=== PATIENT | male | born 1995 | race Caucasian/White ===

== ENCOUNTER 2017-10-18 13:25 | Emergency (ER) | payer BC ==
[~2017-10-18] VITALS: Ht 182.9 cm; Wt 91.6 kg
[2017-10-18 13:37] VITALS: TEMP 36.9; Ht 182.9 cm; Wt 91.6 kg
--- NOTE | 2017-10-18 14:02 | EMERGENCY ROOM VISIT NOTE ---
History First contact with patient: 13:51 Chief Complaint: KNEEPAIN Stated Complaint: KNEE PLATELL BROKEN? History of Present Illness The patient is a 22 year old male who presents to the Emergency Room with complaints of continued right knee pain. The patient had a fall 4 nights ago. He slipped on black ice landing on his right knee. He saw [facility] services the day following. X-rays were performed. He was told that he had a patellar fracture and was given a brace. He is uncertain if he should be bearing weight on the leg. He is also uncertain of whom he should follow-up for further care. He denies any other injuries. He was given ibuprofen prescription strength, but has not been taking it. Review of Systems 6 system review negative. Please see pertinent positives in the history of present illness section. Past Medical/Surgical History Otherwise healthy Social History Smoking Status: Never Smoker Alcohol Use: occasionally Drug Use: none Marital Status: single Housing Status: lives with roommate Occupation Status: [employer] student Current/Historical Medications No Active Prescriptions or Reported Meds Physical Exam Vital Signs Date Time Temp Pulse Resp B/P (MAP) Pulse Ox O2 Delivery O2 Flow Rate FiO2 10/18/17 13:37 36.9 50 16 121/64 98 Room Air Physical Exam VITALS: Vitals are noted on the nurse's note and reviewed by myself. Vital signs stable. GENERAL: 22-year-old male, in no acute distress, nondiaphoretic, well-developed well-nourished. SKIN: The skin was intact HEAD: Normocephalic atraumatic. MUSCULOSKELETAL: RLE: Swelling and mild ecchymosis noted over the right patella. Tenderness in this area. The patient is able to flex the knee approximately 90. No tenderness noted over the proximal fibula or tibia. No tenderness over the calf. No tenderness over the medial or lateral malleolus. No tenderness over the distal quadriceps tendon. Patellar tendon intact. Negative anterior and posterior drawer test. No joint line and tenderness noted. NEURO: Patient was alert and oriented to person place and time. Normal sensation to touch. No focal neurological deficits. Medical Decision & Procedures ED Course The patient was seen and examined Imaging was reviewed The patient was reassessed and resting comfortably. We discussed his x-rays. He voiced understanding. The patient was given a knee immobilizer. Discharge instructions were thoroughly reviewed, and he was discharged in good condition Medical Decision Differential diagnosis: Patellar fracture, patellar tendon rupture, knee effusion, ligamentous injury This patient is a 22-year-old male presents to the emergency department with continued knee pain after falling on the knee a few days ago. His imaging from [facility] was reviewed. He does have a patellar fracture. He does not have any ligamentous injury on exam. The patient was given a knee immobilizer. He has crutches at home. He will follow-up with [facility] orthopedics this week. He was comfortable taking ibuprofen for pain. He will return for any new or concerning symptoms This chart was completed in part utilizing [employer] Speech Voice Recognition software. Attempts were made to minimize the grammatical errors, random word insertions, pronoun errors and incomplete sentences. Any formal questions or concerns about the content, text or information contained within the body of this dictation should be directly addressed to the provider for clarification. Medication Reconcilliation Current Medication List: was personally reviewed by me Blood Pressure Screening Patient's blood pressure: Normal blood pressure Impression Primary Impression: Patellar fracture Departure Information Dispostion Home / Self-Care Condition GOOD Prescriptions No Active Prescriptions or Reported Meds Referrals No Doctor, Assigned (PCP) Ken Nunez M.D. Patient Instructions My [facility] Additional Instructions You have been evaluated in the emergency department for a patellar fracture. Please keep the knee immobilizer in place particularly when moving about. Ideally, use crutches without weightbearing on the leg. Please apply ice for 20 minute intervals especially over the next 48 hours. Elevate the knee above your heart. Ibuprofen 600 mg every 6 hours as needed for pain Please call the orthopedic doctors office in the morning for a follow-up appointment Do not hesitate to return to the emergency department with a new, worsening or concerning symptoms. School Instructions Return To School: 1 day
[2017-10-18 14:41] VITALS: BP 146/64; PULSE 55; O2SAT 94
== END 2017-10-18 14:42 | disposition home or self-care (01) ==
LOC: C.EDB 13:28 → C.EDD 14:42
DX: S82.001A Unspecified fracture of right patella, initial encounter for closed fracture (principal); W00.0XXA Fall on same level due to ice and snow, initial encounter

== ENCOUNTER → 2017-11-09 | Outpatient (CLI) | payer BC | END | disposition home or self-care (01) | LOC: C.RDSM 13:30 | PROVIDERS: ATTEND Physical Medicine & Rehabilitation Sports Medicine | DX: S82.024A Nondisplaced longitudinal fracture of right patella, initial encounter for closed fracture (principal); X58.XXXA Exposure to other specified factors, initial encounter ==

== ENCOUNTER 2021-06-01 03:26 | Observation (INO) ==
[~2021-06-01 03:26] MED LIST: SODIUM CHLORIDE 0.9% 1000ML 1,000 ML IV ONE
--- NOTE | 2021-06-01 03:30 | Emergency Department Note ---
Impression & Plan Laceration of left flank, Alcohol intoxication ED Provider Note Name: [id number] Age: 25 Sex: M Arrives Via: Ambulance Informant: Patient, EMS ED Provider: Abhay Lord MD Chief Complaint: abdominal trauma Impression: Left Flank Laceration Alcohol Intoxication Medical Decision Making: Very pleasant intoxicated male without PMH with large gash to left flank after going through a glass door. Occlusive dressing already applied by EMS. Tetanus UTD and patient given Ancef 2gm IV. CT c/a/p obtained reveals no intrathoracic nor intraabdominal penetration remarkably, though multiple pieces of glass within the wound. Soft non-tender abdomen consistent without peritonitis. I explored the wound and after noting significant caudal tunnelling of wound and debris within it gen surg consulted. Patient taken to OR for wash-out and closure of wound. Patient stable throughout and comfortably declining pain medications. Triage/Nursing Notes reviewed by Me Differentials:Contaminated wound, intra-abdominal injury, pneumothorax, intrathoracic, tetanus status, renal injury/splenic injury, hemothorax, diaphragm rupture as well as other pathologies. Vital Signs: reviewed and remarkable for no significant abnormalities Interventions: saline lock, ancef iv Labs:Reviewed and remarkable for no significant abnormalities Imaging:[facility] Radiologist interpretation reviewed by me: large left flank wound with multiple FB, no penetration in to abdomen nor chest Consults:Dr Allred Gen Surg - took patient to OR Plan: Disposition: TO Operating room Condition: Good History of Present Illness:25 yr old male arrives for evaluation of left flank trauma. Patient admits etoh use this evening and accidentally walked through a glass patio door. Laceration to left flank. Moderate pain with movement. No other injuries. Denies abdominal pain, back pain, nor shortness of breath. EMS placed occlusive dressing and transferred to ED. No meds en route. No drug use. Denies bleeding disorder. No allergies. Tetanus up to date. ROS: See above HPI for pertinent positives & negatives. A total of 10 systems reviewed and were otherwise negative. 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 EYES: No scleral icterus, unremarkable pupils. ENT: Mucous membranes moist, no nasal congestion. NECK: No masses appreciated, nomeningismus, trachea is midline. RESPIRATORY: No dyspnea. Clear to auscultation and equal bilaterally. No wheeze, no rhonchi. CARDIOVASCULAR: Regular rate and rhythm.No murmurs, rubs, gallops appreciated. GASTROINTESTINAL: Abdomen soft, non-tender, no peritonitis.Bowel sounds positive.No masses appreciated. Large gash to left flank which is dressed with occlusive dressing, several surrounding satellite lacerations. BACK: No midline tenderness, no CVA tenderness EXTREMITIES: Normal motion all extremities, no cyanosis, no edema. NEUROLOGIC: Alert and oriented, no acute motor or sensory deficits, no focal weakness, cranial nerves grossly intact. SKIN: No rash, no jaundice, no diaphoresis. PSYCH: Appropriate GCS: 15 ED Course: Times/Reassessments: multiple re-evaluations, patient stable, breathing comfortably without significant bleeding from wound Abhay Lord MD Past Med/Surg History Surgical History (Updated 06/03/21 @ 11:25 by Dayana Vernon RN) History of surgery (06/01/21) Wound Closure and Washout Dr. Allred 06/01/2021 Social History (System 06/02/21 @ 12:50 by Karolyn Vela) Smoking Status: Current some day smoker Hx Alcohol Use: Yes Alcohol type: beer, wine and hard liquor Hx Substance Use: No Preferred Language: Ukrainian Communication Ability: Effective [employer] Required: No Beliefs That Will Affect Care: None Current Living Situation: Other Feels Safe at Home: Yes Gender Identity: Male Assistive Devices: None Allergies Allergies Allergy/AdvReac Type Severity Reaction Status Date / Time No Known Allergies Allergy Unverified 06/02/21 12:50 Results & Data (ED) Laboratory Data Result diagrams: 06/01/21 03:44 06/01/21 03:43 Lab Results 06/01/21 06/01/21 06/01/21 Range/Units 03:43 03:43 03:44 WBC 5.20 (4.8-10.8) K/uL RBC 4.67 L (4.7-6.1) M/uL Hgb 14.2 (14.0-18.0) g/dL Hct 40.6 L (42-52) % MCV 86.9 (80-100) fL MCH 30.4 (25-34) pg MCHC 35.0 (32-36) g/dL RDW Std Deviation 40.6 (36.4-46.3) fL RDW Coeff of Jackson 12.7 (11.5-14.5) % Plt Count 201 (130-400) K/uL MPV 9.7 (7.4-10.4) fL Immature Gran % (Auto) 0.2 % Neut % (Auto) 63.3 % Lymph % (Auto) 29.2 % Davis % (Auto) 6.7 % Eos % (Auto) 0.2 % Baso % (Auto) 0.4 % Neut # (Auto) 3.29 (1.4-6.5) K/uL Lymph # (Auto) 1.52 (1.2-3.4) K/uL Davis # (Auto) 0.35 (0.11-0.59) K/uL Eos # (Auto) 0.01 (0-0.5) K/uL Baso # (Auto) 0.02 (0-0.2) K/uL Immature Gran # (Auto) 0.01 (0.00-0.02) K/uL Sodium 140 (136-145) mmol/L Potassium 4.2 (3.5-5.1) mmol/L Chloride 107 (98-107) mmol/L Carbon Dioxide 29 (21-32) mmol/L Anion Gap 4.0 (3-11) BUN 10 (7-18) mg/dl Creatinine 1.20 (0.6-1.4) mg/dl Est Cr Clr Drug Dosing 114.7 ml/min Est GFR ( Amer) 97.5 ml/min Est GFR (Non-Af Amer) 84.1 ml/min BUN/Creatinine Ratio 8.5 L (10-20) Glucose 106 H (70-99) mg/dl Calcium 8.7 (8.5-10.1) mg/dl Ethyl Alcohol mg/dL 231.0 H (0-3) mg/dl COVID-19 Eval Order SARS-CoV-2 (PCR) (Negative) 06/01/21 06/01/21 Range/Units 05:34 05:34 WBC (4.8-10.8) K/uL RBC (4.7-6.1) M/uL Hgb (14.0-18.0) g/dL Hct (42-52) % MCV (80-100) fL MCH (25-34) pg MCHC (32-36) g/dL RDW Std Deviation (36.4-46.3) fL RDW Coeff of Jackson (11.5-14.5) % Plt Count (130-400) K/uL MPV (7.4-10.4) fL Immature Gran % (Auto) % Neut % (Auto) % Lymph % (Auto) % Davis % (Auto) % Eos % (Auto) % Baso % (Auto) % Neut # (Auto) (1.4-6.5) K/uL Lymph # (Auto) (1.2-3.4) K/uL Davis # (Auto) (0.11-0.59) K/uL Eos # (Auto) (0-0.5) K/uL Baso # (Auto) (0-0.2) K/uL Immature Gran # (Auto) (0.00-0.02) K/uL Sodium (136-145) mmol/L Potassium (3.5-5.1) mmol/L Chloride (98-107) mmol/L Carbon Dioxide (21-32) mmol/L Anion Gap (3-11) BUN (7-18) mg/dl Creatinine (0.6-1.4) mg/dl Est Cr Clr Drug Dosing ml/min Est GFR ( Amer) ml/min Est GFR (Non-Af Amer) ml/min BUN/Creatinine Ratio (10-20) Glucose (70-99) mg/dl Calcium (8.5-10.1) mg/dl Ethyl Alcohol mg/dL (0-3) mg/dl COVID-19 Eval Order Covid19 at [facility] SARS-CoV-2 (PCR) NEGATIVE (Negative) Administered Medications Discontinued Medications Hydrocodone Bitart/Acetaminophen (Hydrocodone/Acetamophen 5/325mg Tab) 1 tab PO Q4H PRN PRN Reason: MODERATE Pain (4,5,6) & Pre PT Stop: 06/15/21 13:01 Last Admin: 06/01/21 20:14 Dose: 1 tab Documented by: [id number] Fentanyl Citrate (Fentanyl Citrate 100 Mcg/2 Ml Vial) 25 mcg IV Q5M PRN PRN Reason: PACU Use Only-Pain Stop: 06/01/21 19:46 Last Admin: 06/01/21 14:36 Dose: 25 mcg Documented by: [id number] Admin: 06/01/21 13:57 Dose: 25 mcg Documented by: [id number] Admin: 06/01/21 13:49 Dose: 25 mcg Documented by: [id number] Admin: 06/01/21 13:42 Dose: 25 mcg Documented by: [id number] Admin: 06/01/21 13:35 Dose: 25 mcg Documented by: [id number] Sodium Chloride (Nss 1000ml) 1,000 mls @ 999 mls/hr IV .Q1H1M ONE Stop: 06/01/21 04:26 Last Infusion: 06/01/21 05:12 Dose: 0 mls/hr Documented by: [id number] Admin: 06/01/21 04:06 Dose: 999 mls/hr Documented by: [id number] Cefazolin Sodium (Ancef 2000mg) 2,000 mg in 15 mls @ 3.75 mls/min IV NOW STA Stop: 06/01/21 03:55 Last Admin: 06/01/21 04:06 Dose: 3.75 mls/min Documented by: [id number] Lactated Ringer's (Lr) 1,000 mls @ 80 mls/hr IV .[id number] Stop: 07/01/21 13:14 Last Admin: 06/02/21 04:54 Dose: 80 mls/hr Documented by: [id number] Infusion: 06/02/21 04:54 Dose: 80 mls/hr Documented by: [id number] Admin: 06/01/21 16:58 Dose: 80 mls/hr Documented by: [id number] Cefazolin Sodium (Ancef 2000mg) 2,000 mg in 15 mls @ 2.5 mls/min IV Q8H [facility]; Protocol Stop: 06/02/21 19:59 Last Admin: 06/02/21 04:54 Dose: 2.5 mls/min Documented by: [id number] Admin: 06/01/21 20:14 Dose: 2.5 mls/min Documented by: [id number] Ioversol (Optiray 320 100ml) 94 ml IV ONCE ONE Stop: 06/01/21 03:33 Last Admin: 06/01/21 03:32 Dose: 94 ml Documented by: [id number] Lidocaine/Epinephrine (Lidocaine/Epinephrine 1% 20 Ml Vial) 20 ml INFIL NOW ONE Stop: 06/01/21 05:05 Last Admin: 06/01/21 05:46 Dose: Not Given Documented by: [id number] Morphine Sulfate (Morphine Sulfate 2 Mg/Ml Carp) 2 mg IV Q3H PRN PRN Reason: Pain (1,2,3,4,5) & Pre PT Stop: 06/15/21 13:01 Last Admin: 06/01/21 16:22 Dose: 2 mg Documented by: [id number] Oxycodone/Acetaminophen (Percocet 5/325mg Homepack) 1 homepack PO UD ONE Stop: 06/02/21 06:40 Last Admin: 06/02/21 10:52 Dose: 1 homepack Documented by: [id number] Discharge Plan Visit Data Chief Complaint: Laceration/Cut (Suture/Dermabond) Stated Complaint: lac to abd ED Provider: Abhay Lord Discharge Problem: Laceration of left flank, Alcohol intoxication Patient Disposition: Admitted As Inpatient Discharge Instructions Interventions: ED Discharge Assessment Last Done: 06/01/21 11:24 Discharge Problem: Laceration of left flank Qualifiers: Encounter type: initial encounter Qualified Code(s): S31.119A - Laceration without foreign body of abdominal wall, unspecified quadrant without penetration into peritoneal cavity, initial encounter Alcohol intoxication Qualifiers: Complication of substance-induced condition: uncomplicated Qualified Code(s): F10.920 - Alcohol use, unspecified with intoxication, uncomplicated
[2021-06-01] MEDS ORDERED: OPTIRAY 320 100ml IV ONE (03:32)
[2021-06-01] MEDS ORDERED: ceFAZolin 2000MG 2,000 MG/15 ML SYR IV STA (03:52)
[2021-06-01 03:59] LABS: Basophils # (auto) 0.02 K/uL (0-0.2); Basophils % (auto) 0.4 %; Eosinophils # (auto) 0.01 K/uL (0-0.5); Eosinophils % (auto) 0.2 %; Hematocrit (blood only) 40.6 % (42-52); Hemoglobin 14.2 g/dL (14.0-18.0); Immature Granulocytes # (auto) 0.01 K/uL (0.00-0.02); Immature Granulocytes % (auto) 0.2 %; Lymphocytes # (auto) 1.52 K/uL (1.2-3.4); Lymphocytes % (auto) 29.2 %; Mean Corpuscular Hemoglobin 30.4 pg (25-34); Mean Corpuscular Volume 86.9 fL (80-100); Mean Platelet Volume 9.7 fL (7.4-10.4); Monocytes # (auto) 0.35 K/uL (0.11-0.59); Monocytes % (auto) 6.7 %; Neutrophils # (auto) 3.29 K/uL (1.4-6.5); Neutrophils % (auto) 63.3 %; Platelet Count 201 K/uL (130-400); RDW Coefficient of Variation 12.7 % (11.5-14.5); RDW Standard Deviation 40.6 fL (36.4-46.3); Red Blood Count 4.67 M/uL (4.7-6.1)
[2021-06-01 04:18] LABS: BUN Creatinine Ratio 8.5 (10-20); Calcium 8.7 mg/dl (8.5-10.1); Creatinine Clr Calc Pharmacy 114.7 ml/min; Est GFR (African American) 97.5 ml/min; Est GFR (Non-African American) 84.1 ml/min; Potassium 4.2 mmol/L (3.5-5.1)
[2021-06-01] MEDS ORDERED: LIDOCAINE/EPINEPHRINE 1% 20 ML VIAL INFIL ONE (05:04)
--- NOTE | 2021-06-01 05:49 | History & Physical Report ---
Date of Service June 01, 2021 Assessment & Plan (1) Laceration: Plan: Due to the size of complex ear laceration I discussed with Dr. Allred we feel that this would be best be closed in the operating room. The patient has received Ancef in the emergency department A Covid test has been ordered and is pending I discussed with the patient and consented him for a wound washout and closure in the operating room this morning History of Present Illness Chief Complaint: I have a laceration Primary Care Provider: NO PCP This is a 25-year-old male who is visiting [employer] for this evening's football game. Patient says that he was at a social gathering with some friends when at approximately 2:00 AM he accidentally walked through a glass door resulting in a laceration of his left flank. The present time the patient denies any pain. He is reported to the emergency room staff that his tetanus is up-to-date. Patient states that his most recent oral intake was approximately midnight last night. The patient denies taking any blood thinning medications. I discussed with the emergency room doctor and due to the extent of the laceration he feels that this may be best closed in the operating room. Patient has had a chest CT scan shows no fractures. There is no damage noted to the solid organs of the abdomen or pelvis. Densities were noted in the wound which potentially represented glass shards from his injury. Labs including CBC were white blood cell count and hemoglobin are noted to be normal. Patient's platelet count was noted to be normal. Chemistry profile showed sodium, potassium, BUN, and creatinine were all normal. Patient was noted to have an elevated ethyl alcohol level of 231. At the time my interview the patient was resting comfortably in bed and he was in no distress. Past Med/Surg History Social History Smoking Status: Never smoker Feels Safe at Home: Yes Review of Systems Constitutional: no fever and no chills Respiratory: no cough Cardiovascular: no chest pain Gastrointestinal: no nausea and no vomiting Physical Exam Physical Exam: On patient's left flank the patient has approximately an 8 cm laceration. The wound does not appear to be actively bleeding. The wound appears to extend through the subcutaneous fat into the muscle. There is not appear to be any gross soilage or contamination. There is no crepitus noted in the wound. Constitutional: well developed and well nourished; no acute distress Eyes: no conjunctival abnormality ENMT: Ears: no hearing impairment Neck: trachea midline Respiratory: normal respiratory effort, lungs clear to auscultation Neurologic: moves all extremities Psychiatric: A+Ox3, euthymic affect Results & Data Results & Data ([facility]) Vital Signs (Past 12 Hours) Vital Signs Temp Pulse Pulse Resp BP BP Pulse Ox 06/01/21 04:06 67 18 125/62 98 06/01/21 03:36 37 C 75 18 131/77 97 Supervising Physician Co-Signing Physician Notes Patient was sleeping this time awoken slightly withdrawn probably the effect of ethyl alcohol the left flank incision gaping open good 12 cm to 14 cm in size As per Herve Aparicio physician mortgage assistant discussed with the patient the best avenue was to take him to the operating room watch this and close it possible subcutaneous drain Patient is agreeable to this Covid test is pending PG Care Time/CCT Total # of Minutes Spent Total Time Spent with Patient: Total time spent is greater than 50% in coordination of care (as documented) at patient's floor/unit and/or counseling patient: Coding Level of Care Code INT OBSERVATION CARE 70M LVL 3 Diagnoses Laceration
--- NOTE | 2021-06-01 09:18 | CT Scan Report ---
CHEST CT WITH CONTRAST, ABDOMEN AND PELVIS CT WITH INTRAVENOUS CONTRAST CT DOSE: 869.90 mGy.cm HISTORY: penetrating trauma left flank TECHNIQUE: Multiaxial CT images of the chest, abdomen, and pelvis were performed following the intrav enous administration of contrast. A dose lowering technique was utilized adhering to the principles of ALARA. COMPARISON: None. FINDINGS: Chest CT: There is a large left flank laceration with 3 rectangular radiopaque foreign bodies deep wi thin the laceration. These measure between 0.5 mm and 10 mm. The larger radiopaque foreign bodies are superficial to the left posterior lateral 10th rib. No rib fractures identified. The laceration does not enter the chest or abdominal cavities. No acute fractures within the visualized osseous structur es of the chest. The heart is normal in size. No pleural or pericardial effusions. No mediastinal hem atoma or lymphadenopathy. The mediastinal vascular structures are within normal limits. The central a irways are patent. No pneumothorax. Mild dependent changes seen within the left lung posteriorly. Oth erwise, the lungs are clear. Abdomen/pelvis CT: No pneumoperitoneum. No pneumatosis. No fractures within the visualized osseous st ructures. The liver, spleen, gallbladder, pancreas, adrenal glands, and kidneys are unremarkable. No hydronephrosis. No retroperitoneal hematoma. Normal abdominal aorta. The bladder is unremarkable. No pelvic free fluid. No bowel wall thickening or obstruction. Normal appendix. IMPRESSION: 1. Large left flank soft tissue laceration containing 3 radiopaque foreign bodies within the largest measuring 1 cm. 2. No intrathoracic or intra-abdominal traumatic abnormality. ACT 112: Negative or not required by law. Electronically signed by: Jose Cao M.D. 06/01/2021 9:17 AM
--- NOTE | 2021-06-01 11:40 | History & Physical Bridge Note ---
Date of Service June 01, 2021 History & Physical Bridge Note I have examined the patient, reviewed the History & Physical and in the interval since the performance of the History & Physical I have noted the following changes of clinical significance: no changes noted pt alert coherent surgery explained to pt and site marked
--- NOTE | 2021-06-01 11:44 | Anesthesiology Consultation ---
Date of Service June 01, 2021 Assessment & Plan (1) Encounter for pre-operative examination: Chart Review Chart Review: Acceptable Risk for Surgery Consults Requested none ASA ASA1 Proposed Anesthesia Anesthesia Type: General Risk / Benefits Reviewed With: PT / POA / Parent / Guardian, Accepts Plan and Informed Consent Obtained History Surgery Operation Date: 06/01/21 12:00 Proposed Procedures p Incision and Drainage General - Johnson Allred MD, FACS Height/Weight Height: 5 ft 11 in Weight: 100.6 kg NPO Date Last Intake of Fluids: 06/01/21 Time Last Intake of Fluids: 00:00 Date Last Intake of Solids: 06/01/21 Time Last Intake of Solids: 00:00 Exercise / Class Metabolic Activity II 4-5 Yardwork/Stairs/Walk up hill Past Anesthesia History No Hx of Anesthesia Complications and No Family Hx of Anesthesia Complications History of PONV No Hx of PONV and No Hx of Motion Sickness Social History Smoking Status: Never smoker Physical Exam Vital Signs Last Vital Signs Temp 98.6 F 06/01/21 03:36 Pulse 47 L 06/01/21 11:00 Resp 16 06/01/21 11:00 BP 112/57 L 06/01/21 11:00 Pulse Ox 98 06/01/21 11:00 ENMT Mouth: no dentition abnormality Thyromental Distance: > or= 3.5 Finger Breadths Mallampati Class: I Neck normal visual inspection Respiratory normal respiratory effort Auscultation: lungs clear to auscultation bilaterally Cardiovascular Rate/Rhythm: regular rate and regular rhythm Testing Laboratory Results 06/01/21 03:44 06/01/21 03:43
[2021-06-01] MEDS ORDERED: ATROPINE SULFATE 0.1 MG/ML 10ML SYR IV PRN (11:46)
[2021-06-01] MEDS ORDERED: ONDANSETRON INJ 2 MG/ML 2 ML VIAL IV PRN ×2 (11:46→13:02)
[2021-06-01] MEDS ORDERED: ePHEDrine sulfate 50 MG/ML AMP IV PRN (11:46)
[2021-06-01] MEDS ORDERED: PROPOFOL IV EMULSION 10 MG/ML 20 ML VIAL IV ONE ×2 (11:50→12:22)
[2021-06-01] MEDS ORDERED: ONDANSETRON INJ 2 MG/ML 2 ML VIAL ONE (11:50)
[2021-06-01] MEDS ORDERED: ROCURONIUM BROMIDE 10 MG/ML 5 ML VIAL IV ONE (11:50)
[2021-06-01] MEDS ORDERED: fentaNYL citrate 100 MCG/2 ML VIAL ONE ×4 (11:50→14:34)
[2021-06-01] MEDS ORDERED: LIDOCAINE 2% 2 ML VIAL/AMP(20MG/ML) INFIL ONE (11:50)
[2021-06-01] MEDS ORDERED: DEXAMETHASONE SOD INJ 4 MG/ML VIAL ONE (11:50)
[2021-06-01] MEDS ORDERED: MIDAZOLAM HCL 1 MG/ML 2ML VIAL ONE (11:51)
[2021-06-01] MEDS ORDERED: KETAMINE 50 MG/5 ML SYRINGE ONE (12:07)
--- NOTE | 2021-06-01 12:56 | Post Operative Brief Note ---
PG Immediate Post Op with CF Date of Surgery June 01, 2021 Pre & Post Diagnosis Operation Date: 06/01/21 12:00 Pre-Op Diagnosis: Laceration Left Flank Post-Op Diagnosis: Laceration Left Flank I identified the patient and participated in the time-out.: Yes Procedure Operation Date: 06/01/21 12:00 Actual Procedures p Wound Closure and Washout(Left) - Johnson Allred MD, FACS Surgeon Johnson Allred MD, FACS Associate Curator 0 Estimated Blood Loss 50 Findings Consistent with Post-Op Diagnosis Specimens Specimen Description: a. foreign body in traumatic incision Drains Melva Drain
[2021-06-01] MEDS ORDERED: HYDROCODONE/ACETAMOPHEN 5/325MG TAB PO PRN (13:02)
[2021-06-01] MEDS ORDERED: MoRPHine SULFATE 2 MG/ML CARP IV PRN (13:02)
--- NOTE | 2021-06-01 13:29 | Operative Report ---
Post Operative Report Pre & Post Diagnosis Operation Date: 06/01/21 12:00 Pre-Op Diagnosis: Laceration Left Flank Post-Op Diagnosis: Laceration Left Flank I identified the patient and participated in the time-out.: Yes Procedure Operation Date: 06/01/21 12:00 Actual Procedures p Wound Closure and Washout(Left) - Johnson Allred MD, FACS Patient was brought into the operating room theater general trach anesthesia a roll of been placed underneath this left flank to rotate him to the right a pillow placed between his legs IV antibiotics on board a timeout was had patient was identified we took the dressing off that been placed when he first came into the emergency room after sustaining a fall which caused a significant wound in his left upper abdomen and chest once the dressing was off we were able to identify the wound was relatively clean cut the nature a few edges answered fragmented and had some small clots and in the depth of the wound we at this point and prepped the whole wound in the abdominal area with Betadine solution and properly draped I was able then to explore the wound which we measured about 13 cm partially explored bluntly with the finger and actually could feel that even though the skin incision was 13 cm in the left lateral aspect into the chest area it was extending up to about 16cm. I could also appreciate that the patient cut the external Bleich muscle in the upper abdomen on top and about the 10th rib and below it and extended down beyond the 10th rib and 11th rib laterally cutting the serratus muscle and part of the latissimus the intercostal muscles appeared intact at this point we used the pulse medical coding auditor to flush out any debris that was in there and it seemed like there was some glass fragments that we were able to extract but there was no fiber or any dirt appreciated overall the wound appeared to be quite clean except to the few areas of regularly edges. Once had sufficiently drained and removed the least 2 pieces of glass not able to find anything more I start closing the serratus and external Bleich and the multiple layers using 2-0 Vicryl sutures. Placed it 5/8 of an inch Melva drain subcutaneously and closed the skin over with leilani attaching the [place] drain tip to the medial aspect of the incision with 2-0 silk the skin edges was freed up and realigned in a few areas and appeared to be quite red ring. Patient has also few other areas that were smaller almost abrasion of the skin that we freshened up. A dressing was applied estimated blood loss approximately 50 cc Surgeon Johnson Allred MD, FACS Hydraulic Hammer Operator 0 Estimated Blood Loss 50 Findings Consistent with Post-Op Diagnosis 13 cm laceration of the skin extending from the upper abdomen to the left chest approximately the 10th through 11th rib laterally the trauma extended to approximately 16cm. Fragments of foreign body glass were removed Specimens Foreign body glass in the traumatic wound in the left upper abdomen and chest Drains 5/8 of an inch [place] in the subcu Description of Procedure merda I attest to the content of the Intraoperative Record and any orders documented therein. Any exceptions are noted below.
[2021-06-01] MEDS: fentaNYL citrate 100 MCG/2 ML VIAL IV PRN ×5 (13:35→14:36)
--- NOTE | 2021-06-01 13:59 | Anesthesiology Progress Note ---
Date of Service June 01, 2021 Anesthesia Post Procedure Vital Signs Vital Signs: Temp Pulse Pulse Resp BP BP Pulse Ox 06/01/21 13:50 58 L 18 113/53 L 94 06/01/21 13:40 45 L 14 118/53 L 94 06/01/21 13:30 52 L 16 109/51 L 96 06/01/21 13:20 74 18 121/50 L 100 06/01/21 13:13 97.9 F 93 H 18 136/64 99 06/01/21 11:00 47 L 16 112/57 L 98 06/01/21 10:00 45 L 19 118/69 97 06/01/21 09:30 50 L 22 126/68 98 06/01/21 09:25 74 16 129/74 98 06/01/21 09:00 42 L 17 108/56 L 98 06/01/21 08:30 46 L 16 84/49 L 97 06/01/21 08:00 93 H 20 97/41 L 96 06/01/21 07:30 58 L 17 102/47 L 94 06/01/21 07:07 53 L 16 104/49 L 96 06/01/21 07:00 48 L 16 104/49 L 96 06/01/21 06:30 58 L 19 113/57 L 97 06/01/21 06:23 100 H 18 98 06/01/21 05:00 59 L 19 116/45 L 95 06/01/21 04:30 65 19 109/48 L 98 06/01/21 04:06 67 18 125/62 98 06/01/21 04:01 78 14 125/62 96 06/01/21 03:36 98.6 F 75 18 131/77 97 06/01/21 03:30 128/69 Pain Intensity Left Back: Pain Intensity: 6 Transfer of Care Handoff Completed per policy Notes Mental Status: alert / awake / arousable and participated in evaluation Patient Amnestic to Procedure: Yes Nausea / Vomiting: adequately controlled Pain: adequately controlled Airway Patency, RR, SpO2: stable & adequate BP & HR: stable & adequate Hydration State: stable & adequate Anesthetic Complications: no major complications apparent and Pt Satisfied with anesthetic care
[2021-06-01] MEDS: LACTATED RINGER'S 1,000 ML IV SCH (16:58)
[2021-06-01] MEDS ORDERED: ceFAZolin 1000MG 1,000 MG/7.5 ML SYR IV SCH (20:00)
[2021-06-01] MEDS: ceFAZolin 2000MG 2,000 MG/15 ML SYR IV SCH (20:14)
[2021-06-02] MEDS: ceFAZolin 2000MG 2,000 MG/15 ML SYR IV SCH (04:54)
[2021-06-02] MEDS: LACTATED RINGER'S 1,000 ML IV SCH (04:54)
--- NOTE | 2021-06-02 05:45 | Surgery Progress Note ---
Date of Service June 02, 2021 Assessment & Plan (1) Laceration: Plan: Status post wound washout and closure on 1postoperative day #1 Continue local wound care Continue antibiotics in the form of Ancef while in the hospital; will likely transition to oral antibiotics prior to discharge May consider discharge home later today after attending physician examines wound. At time of discharge patient will need to have follow-up with a healthcare provider in his hometown of [facility] for drain and staple removal Admission and Anticipated Discharge Date Admission Date: June 01, 2021 Supervising Physician Co-Signing Physician Notes As per Herve Pandey physician paperhanger assistant Patient is alert coherent resting relatively comfortable Dressing in the incision was removed the Melva drain was removed dressing was reapplied The patient is up and around The patient is from [facility] would like to go home today he is planning on driving I recommended the drive and stop every hour do not take any prescription analgesics change the dressing if need be in the operative site which is healed well no gross hematomas I gave the patient a staple remover so he can take it with him and instructed him to follow-up with his family doctor in about a week or 10 days to have the leilani removed Also instructed him regarding wound care as far as showering The operative findings were thoroughly discussed with the patient All questions answered Subjective Patient is resting comfortably in bed. He offers no complaints from last night. He specifically denies any fevers, shakes, chills. He denies any nausea or vomiting. He is tolerating diet. Physical Exam Physical Exam: Patient's left flank wound has dressing with a small amount of serosanguineous drainage on it. We will plan on assessing wound more thoroughly when attending physician arrives. Results & Data ([facility]) Vital Signs (Past 12 Hours) Vital Signs Temp Pulse Resp BP Pulse Ox 06/02/21 02:27 36.8 C 71 16 148/76 H 99 06/01/21 21:54 36.9 C 57 L 16 130/70 97 06/01/21 18:39 37.4 C 54 L 18 137/71 98 PG Care Time/CCT Total # of Minutes Spent Total Time Spent with Patient: Total time spent is greater than 50% in coordination of care (as documented) at patient's floor/unit and/or counseling patient: Coding Level of Care Code None Diagnoses Laceration
[2021-06-02] MEDS ORDERED: PERCOCET 5/325MG HOMEPACK PO ONE (06:39)
--- NOTE | 2021-06-18 22:01 | Discharge Summary ---
Date of Service June 18, 2021 Discharge Data Consultations 06/01/21 05:38 Consult General Surgery Stat Procedures Performed Operation Date: 06/01/21 12:00 Actual Procedures p Wound Closure and Washout(Left) - Johnson Allred MD, [facility] Hospital Course (1) Laceration of left flank: Patient presented to [facility] emergency department secondary to a left flank laceration. The patient suffered this while walking through a glass window while visiting in [employer] for the [employer] football game. Because of the nature and size of the laceration the patient presented the emergency department. Because of the size of the laceration the treating emergency room physician felt that this would best be treated with closure and washout in the operating room. Patient was therefore admitted to the hospital under observation status by Dr. Diez and on the date of admission patient was taken to the operating room where a wound washout and closure was performed. Patient was given antibiotics in the form of Ancef. He was kept in the hospital for approximate 24 hours in order to receive additional doses of IV antibiotics. On postop day #2 the patient was deemed stable for discharge home. The patient was instructed to follow-up with his family physician to have leilani removed in approximately 10 days. He was instructed to call our office for any concerns or questions. He was structured on appropriate wound care diet and activity. He was discharged home on postop day #2. Coding Level of Care Code None Diagnoses Laceration of left flank S31.119A Encounter type: initial encounter
== END 2021-06-02 11:55 | disposition home or self-care (01) ==
LOC: ED 03:26 → 3E 11:24 → ASU 11:24 → MERGE 15:18
DX: S31.12 Laceration with foreign body of abdominal wall without penetration into peritoneal cavity; W25.XXXA Contact with sharp glass, initial encounter; F10.129 Alcohol abuse with intoxication, unspecified; F17.200 Nicotine dependence, unspecified, uncomplicated